=== PATIENT | female | born 1970 | race Caucasian/White ===

== ENCOUNTER 2018-01-30 16:39 | Emergency (ER) | payer BC, MEDICAID ==
[~2018-01-30] VITALS: Ht 167.6 cm; Wt 59.0 kg
--- NOTE | 2018-01-30 17:05 | NUR ---
Pt was evaluated by dr Flores. pt was d/c to home. d/c instructions given to the pt.
[2018-01-30 17:07] VITALS: BP 141/77
== END 2018-01-30 17:09 | disposition home or self-care (01) ==
LOC: ER 16:41
DX: S01.81XA Laceration without foreign body of other part of head, initial encounter (principal); W26.8XXA Contact with other sharp object(s), not elsewhere classified, initial encounter; Y93.89 Activity, other specified; Y92.89 Other specified places as the place of occurrence of the external cause; Y99.8 Other external cause status
CPT/HCPCS: 12011; 99283; A4663